=== PATIENT | male | born 1980 | race Caucasian/White ===

== ENCOUNTER 2018-11-20 02:47 | Emergency (ER) | payer BC ==
[~2018-11-20] VITALS: Ht 177.8 cm; Wt 120.0 kg
[2018-11-20 03:03] VITALS: BP 141/86
[2018-11-20] MEDS ORDERED: AMOX125S17 PO (03:03)
--- NOTE | 2018-11-20 03:04 | NUR ---
PT STATEED HE TRANFERRED FROM [place]. PT HAS SWELLING UNDER TONGUE AND DIFFICULTY SWALLOWING FOOD. SYMPTOMS STARTED 1 WEEK AGO Addendum: 11/20/18 at 0305 by MESFIN MONITORS APPLIED, SIDERAILS UP X2, CALL LIGHT WITHIN REACH. AWAITING ERP FOR EVAL AND ORDERS
[2018-11-20] MEDS ORDERED: LIDOCAINE-MPF 1%, 5ML ONE (03:20)
[2018-11-20] MEDS ORDERED: LIDOCAINE-MPF 1%, 5ML INFIL ONE (03:30)
== END 2018-11-20 03:51 | disposition home or self-care (01) ==
LOC: ED 03:20
DX: K11.5 Sialolithiasis (principal); J45.909 Unspecified asthma, uncomplicated
CPT/HCPCS: 99284